=== PATIENT | female | born 1985 | race Caucasian/White ===

== ENCOUNTER 2016-12-19 08:09 | Inpatient (IN) | payer BC ==
[~2016-12-19] VITALS: Ht 165.1 cm; Wt 85.3 kg
[~2016-12-19 08:09] MED LIST: CALCIUM500 MG PO; DHA100 MG; PRENATAL TABLE1 EAC1; SUPER B COMPLE150 MG
[2016-12-30] MEDS ORDERED: ADVIL200 M1 PO (17:03)
[2017-01-07] MEDS ORDERED: MIRENA1 EACH IY (13:41)
--- NOTE | 2017-01-08 09:26 | NUR ---
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
--- NOTE | 2017-01-08 10:37 | NUR ---
PATIENT ADMITTED TO [facility] ROOM 115 VIA A STRETCHER, PATIENT IS ALERT AND ORIENTED UPON ARRIVAL AND ABLE TO MOVE OVER TO THE STRETCHER WITHOUT ANY TROUBLE. PATIENT IS ON RA. NO C/O SOB OR PAIN UPON ARRIVAL. SPINAL HAS RESOLVED AND SHE HAS FEELING IN HER FEET. PULSE OX PLACED ON THE PATIENT AT THIS TIME AND SCD'S PLACED ON HER LEGS AT THIS TIME.
--- NOTE | 2017-01-08 11:36 | NUR ---
PT CALLED THE NURSES STATION TO REPORT THAT AFTER DRINKING SOME CHICKEN BROTH SHE HAD ABOUT 4 OZ. OF EMESIS. SHE REPORTS SHE DOES NOT FEEL NAUSEA AT THIS TIME. SHE SAID SHE FELT A LITTLE COLD. RN AGREE ROOM FEELS COLD. THERMASTAT INCREASED AND WARM BLANKETS GIVEN.
--- NOTE | 2017-01-08 12:07 | NUR ---
2ND SET OF POST OP VITALS TAKEN, TEMP WAS 96.3 BEAR PAW PLACED ON THE PATIENT AT THIS TIME. PATIENT STILL HAS NO C/O PAIN BUT HAS BEEN NAUSEATED. SIPPING ON TEA.
--- NOTE | 2017-01-08 12:39 | NUR ---
POST OP VITALS TAKEN, ALL WITHIN NORMAL LIMITS AT THIS TIME, PATIENT'S TUBES ADJUSTED AT THIS TIME AND SHE HAS HAD ANOTHER EMESIS, SHE REFUSED A DOSE OF ZOFRAN AT THIS TIME.
--- NOTE | 2017-01-08 13:37 | NUR ---
PATIENT HAD ANOTHER EMESIS, ZOFRAN 4MG GIVEN IV AT THIS TIME. LAST SET OF POST OF VITALS TAKEN AND CLEAR LIQUID TRAY TAKEN FROM HER.
--- NOTE | 2017-01-08 14:50 | NUR ---
PATIENT STILL NAUSEATED, 12.5MG OF PHENERGAN GIVEN AT THIS TIME WITH HER SCHEDULED TORADOL. PATIENT HAS NOT BEEN EATING OR DRINKING SO SHE IS VOMITING UP STOMACH BILE. PATIENT HAS NO C/O PAIN AT THIS TIME.
--- NOTE | 2017-01-08 16:18 | NUR ---
PATIENT IS RESTING WITH EYES CLOSED. PATIENT HAS HAD NO EMESIS SINCE PHENERGAN WAS GIVEN IV. PATIENT DENIES PAIN, HAS NO QUESTIONS OR CONCERNS.
--- NOTE | 2017-01-08 17:30 | NUR ---
DOCTOR GE IN TO SEE THE PATIENT AT THIS TIME, DOCTOR UPDATED ON PATIENTS NAUSEA AND CONTINUED EMESIS. PATIENT GIVEN MECLAZINE, SCOPE PATCH, AND REGLAN AT THIS TIME PER REQUEST FROM DR CAROLINA. PATIENT HAS NOT BEEN ABLE TO EVEN KEEP WATER DOWN AT THIS TIME.
--- NOTE | 2017-01-08 17:40 | NUR ---
NURSE IN WITH PATIENT. PATIENT HAS HAD SEVERAL EMISES. GAVE PATIENT A SODA. NO OTHER NEEDS AT THIS TIME.
--- NOTE | 2017-01-08 17:43 | NUR ---
PATIENT HAD ANOTHER EMESIS, MECLAZINE TABLET CAME BACK UP WITH EMESIS. I AND O COMPLETE AND VITALS TAKEN AT THIS TIME.
--- NOTE | 2017-01-08 17:47 | NUR ---
CALLED DUE TO PT HAVING ONLY 100ML OF URINE OUT OF LOPEZ CATHETER. ORDERED TO ADMINISTER 500ML BOLUS AT THIS TIME
--- NOTE | 2017-01-08 18:15 | NUR ---
MED REC COMPLETE
--- NOTE | 2017-01-08 18:37 | NUR ---
PATIENT UP AMBULATING THE HALLWAY AGAIN INDEPENDENTLY.
--- NOTE | 2017-01-08 19:00 | NUR ---
REPORT RECV'D FROM REN ORDOÑEZ. PT AWAKE, WATCHING TV. PER DS, RN PT HAS HAD SEVERAL BOUT OF N/V. CURRENTLY DENIES NAUSEA. SCARLETT PAIN. VAGINAL PACKING IN PLACE, MINIMAL DRAINAGE. PT C/O SOME NUMBNESS IN HER AR AREA. WILL CONTINUE TO MONITOR. NO FURTHER NEEDS AT THIS TIME. MOTHER AT BEDSIDE CALL LIGHT IN PLACE.
--- NOTE | 2017-01-08 22:09 | NUR ---
PT CALLED, IN TO SEE PT. PT STATES SHE VOMITED, "I THINK IT WAS THE SOUP." PT STATES SHE FEELS BETTER AFTER VOMITING. ZOFRAN AND PHENERGAN OFFERED, PT DECLINED. ICE CHIPS GIVEN. ADVISED PT SHE CAN HAVE MEDICATIONS FOR N/V IF NEEDED, ENCOURAGED TO CALL. NO FURTHER NEEDS AT THIS TIME. CALL LIGHT IN REACH.
--- NOTE | 2017-01-09 01:50 | NUR ---
IN TO CHECK ON PT, PT WAKES EASILY TO NOISE. VITALS OBTAINED. BP LOW, WILL RECHECK AND MONITOR. PT DENIES PAIN AND NAUSEA AT THIS TIME. SCHEDULED MEDICATION GIVEN. NO FURTHER NEEDS AT THIS TIME. MOTHER SLEEPING AT BEDSIDE. CALL LIGHT IN REACH.
--- NOTE | 2017-01-09 02:07 | NUR ---
NURSE IS AWARE OF THE PATIENT'S BP.
--- NOTE | 2017-01-09 03:11 | NUR ---
NURSE NOTIFIED RE BP.
--- NOTE | 2017-01-09 03:17 | NUR ---
IN TO CHECK ON PT, VITALS TAKEN. BP 94/42, PULSE 71. PT DENIES DIZZINESS OR LIGHT HEADEDNESS. SMALL AMOUNT OF VAGINAL BLEEDING NOTED ON AR PAD. PT CONFIRMS THAT BP IS NORMALLY LOW. IVF INFUSING. WILL CONTINUE TO MONITOR. NO FURTHER NEEDS AT THIS TIME. CALL LIGHT IN PLACE.
--- NOTE | 2017-01-09 04:48 | NUR ---
PT HAS RESTED WELL THROUGHOUT SHIFT. N/V X1, PT DECLINED PRN MEDICATION FOR NAUSEA. DENIES PAIN. PT ON A REGULAR DIET, HAS HAD SIPS OF H2O DURING SHIFT. ON RA, PULSE OX IN PLACE. LR @ 125 MLS/HR INFUSING INTO 20G IN R HAND. UO HAS INCREASED SINCE DAY SHIFT. LOW BP NOTED THROUGHOUT SHIFT, PT ASYMPTOMATIC. AFIBRILE. SMALL AMOUNT OF VAGINAL BLEEDING NOTED. AAOX3.
--- NOTE | 2017-01-09 07:05 | NUR ---
BEDSIDE HANDOFF REPORT RECEIVED FROM SEPTIC CLEANER RN. PT RESTING IN BED. LOPEZ CATH IN PLACE. IV FLUIDS INFUSING AT 125 ML/HR. PT DENIES NEEDS AT THIS TIME.
--- NOTE | 2017-01-09 08:00 | NUR ---
PT RESTING IN PAIN. PT DENIES PAIN. PT ON ROOM AIR, O2 SATS 96%, LUNG SOUNDS CLEAR. PT WITH LOW URINE OUTPUT, MD AWARE, FLUID BOLUS INFUSING. PT DENIES NAUSEA AT THIS TIME, SCOPALAMINE PACTH IN PLACE. PT ASSISTED TO SIDE OF BED, STOOD, AMBULATED TO BATHROOM, PT DENIES DIZZINESS. PT ASSISTED BACK TO BED. LOPEZ CATH DRAINING YELLOW URINE. SCDS IN PLACE. MOTHER AT BEDSIDE. DISCUSSED PLAN OF CARE. PT DENIES OTHER NEEDS AT THIS TIME.
--- NOTE | 2017-01-09 10:20 | NUR ---
DR. CAROLINA UPDATED ON PT CONDITION. PT WITH INCREASED URINE OUT PUT, 560 ML IN LAST 4 HOURS, IMPROVED COLOR. PT TOLERATING PO, DENIES NAUSEA. TELEPHONE ORDER TO DISCONTINUE LOPEZ CATH AND STOP IV FLUIDS, BEGING VOIDING TRIAL. DISCUSSED WITH PT, PT UNDERSTOOD. LOPEZ CATH REMOVED. PT INSTRUCTED TO CALL FOR ASSISTANCE TO BATHROOM. PT DENIES OTHER NEEDS AT THIS TIME.
--- NOTE | 2017-01-09 10:58 | NUR ---
PATIENT AWAKE IN BED. GOT WARM BLANKET FRESH ICE WATER. AND SET OUT WASH CLOTHES AND TOWELS FOR HER MOM TO HELP HER WASH HERSELF. PATIENT DOING WELL. CALL LIGHT IN REACH.
--- NOTE | 2017-01-09 12:21 | NUR ---
PT WITH URGE TO VOID, UNABLE TO VOID. BLADDER SCAN FOR 282 ML. PT STATES RECTAL DISCOMFORT IS MAKING IT HARD TO RELAX. PT ENCOURAGED TO CONTNINUE TO TRY TO VOID WHEN FEELING TH EURGE TO VOID. PT INSTRCUTED TO AVOID BEARING DOWN. PT UNDERSTAND. PT DENIES OTHER NEEDS AT THIS TIME.
--- NOTE | 2017-01-09 13:12 | NUR ---
PT VOIDED 300 ML WITH ADDITIONAL UNMEASURED AMOUNT THAT MISSED HAT. BLADDER SCAN FOR 349 ML.
--- NOTE | 2017-01-09 13:23 | NUR ---
PT UP WALKING WITH HER MOTHER FOR THE FIRST TIME. PT FEELING GOOD TO GET OUT OF RM AND WALK. MOM VERY GUARDED ABOUT HOW MUCH SHE IS UP-PROTECTING HER. VERY PLEASANT VISIT, WILL OFFER PRAYER SHAWL TO PT, AND CONTINUE TO FOLLOW
--- NOTE | 2017-01-09 14:45 | NUR ---
PT UNABLE TO VOID, BLADDER SCAN FOR 576 ML, PT FEELING PRESSURE AND IS UNCOMFORTABLE. DR. HOPPER CALLED, MESSAGE LEFT FOR DR TO CALL CALL BACK.
--- NOTE | 2017-01-09 15:00 | NUR ---
PT REQUESTING PAIN MEDICATION. 800 MG MOTRIN GIVEN. ICE BACK PROVIDED FOR PERIRECTAL PAIN.
--- NOTE | 2017-01-09 15:30 | NUR ---
DR. HOPPER TO BEDSIDE TO EVALUATE PT. VERBAL ORDER TO STRAIGHT CATH AND RESTART LR AT 125 ML/HR. PT ENCOURAGED TO TRY TO VOID BY 1730. PT DENIES NEEDS AT THIS TIME.
--- NOTE | 2017-01-09 15:41 | NUR ---
PT STRAIGHT CATH FOR 800 ML. PT TOLERATED PROCEDURE WELL.
[2017-01-09] MEDS ORDERED: IBUPROFEN800 MG PO (16:09)
[2017-01-09] MEDS ORDERED: SENNA-S TABLET1 EACH PO (16:10)
[2017-01-09] MEDS ORDERED: NORCO 5-325 TA1 EACH PO (16:10)
[2017-01-09] MEDS ORDERED: KONDREMUL2.5 ML/5 M PO (16:11)
--- NOTE | 2017-01-09 16:22 | NUR ---
PATIENT HAS HAD LOW BLOOD PRESSURE AND HOW IT HAS LEVELED OUT. LET PATIENTS NURSE KNOW.
--- NOTE | 2017-01-09 17:30 | NUR ---
PT WITH URGE TO VOID, ASSISTED TO BATHROOM, UNABLE TO VOID. PT BLADDER SCAN FOR 469. PT ENCOURAGED TO TRY TO VOID AT 1800, WILL BLADDER SCAN AGAIN.
--- NOTE | 2017-01-09 18:26 | NUR ---
INDWELLING LOPEZ CATH INSERTED, PT TOLERATED PROCEDURE WELL. INITIAL 650 ML URINE DRAINED.
--- NOTE | 2017-01-09 18:38 | NUR ---
PT ON ROOM AIR, LUNG SOUNDS CLEAR. PT TOLERATING REGULAR DIET, DENIES NAUSEA. PT WITH URINARY RETENTION, FAILED VOIDING TRIAL, INDWELLING CATH PLACED. IV FLUIDS INFUSING LR AT 125 ML/HR. PT PAIN WELL CONTROLLED WITH PO MOTRIN, HAS NOT REQUIRED NARCOTIC PAIN MEDICATION, ICE PACK TO PERIANAL AREA. PT HAD BEEN AMBULATORY, WALKING IN PEREZ. PLAN TO DC LOPEZ IN AM.
--- NOTE | 2017-01-09 19:10 | NUR ---
REPORT RECV'D FROM JERRELL. IN TO SEE PT. PT AWAKE, WATCHING TV. LOPEZ IN PLACE AFTER FAILED VOIDING TRIALS. IVF INFUSING. MOTHER AT BEDSIDE. NO FURTHER NEEDS AT THIS TIME. CALL LIGHT IN REACH.
--- NOTE | 2017-01-09 19:50 | NUR ---
PER WORD ORDER IV SL. PUMP CLEAR. CARROT CAKE GIVEN TO PT. CALL LIKE IN REACH.
--- NOTE | 2017-01-10 00:37 | NUR ---
IN TO CHECK ON PT, PT APPEARS TO BE SLEEPING. RR EVEN AND UNLABORED. NO APPARENT DISTRESS NOTED. LOPEZ IN PLACE. MOTHER AT BEDSIDE SLEEPING. CALL LIGHT IN REACH.
--- NOTE | 2017-01-10 02:00 | NUR ---
IN TO CHECK ON PT, PT SLEEPING. VITALS TAKEN. PT DENIES PAIN AND NAUSEA AT THIS TIME. NO FURTHER NEEDS AT THIS TIME. MOTHER SLEEPING AT BEDSIDE. CALL LIGHT WITH IN REACH.
--- NOTE | 2017-01-10 05:01 | NUR ---
PT HAS HAD UNEVENTFUL SHIFT, SLEPT WELL. DENIES PAIN AND NAUSEA. SCHEDULED MOTRIN GIVEN. ON REGULAR DIET TOLERATING WELL. SL. LOPEZ IN PLACE, PLAN TO D/C AT 0600 AND BEGIN VOIDING TRIALS. VITALS ARE STABLE, AFIBRILE. 1 PER ASSIST, AMBULATES WELL.
--- NOTE | 2017-01-10 06:15 | NUR ---
IN TO SEE PT, AM MOTRIN GIVEN. JOHN MAYS DC'Adelina, PT TOLERATED WELL. PT STATES SHE FEELS LIKE SHE HAS TO HAVE A BM. ASSISTED UP TO BATHRROM, PT STEADY ON FEET. TOLERATED AMBULATION WELL. FRESH WATER GIVEN. CALL LIGHT IN REACH.
--- NOTE | 2017-01-10 07:26 | NUR ---
RECIEVED BEDSIDE REPORT FROM SMITA MEJIA AND SMITA MORALES. PT UP INDEPENDENTLY IN ROOM, HAS SHOWERED THIS AM. JOHN REMOVED THIS AM, PT AWARE OF VOIDING TRIAL.
--- NOTE | 2017-01-10 08:27 | NUR ---
PATIENT STATED SHE HAD WENT TO THE BATHROOM. HELPED JEFFERSON DELEON WITH A BLADDER SCAN. SET UP PATIENT FOR A SHOWER AND AM CARE.
--- NOTE | 2017-01-10 10:27 | NUR ---
PT HAS VOIDED MULTIPLE TIMES WITH POST VOID RESDIUALS 50-130ML. PT HAS HAD BM.
--- NOTE | 2017-01-10 11:30 | NUR ---
PT RESTING IN BED, PLANNING TO BE DC'D LATER TODAY. HER DAD HAD JUST LEFT, AND MOM IS STILL HERE. 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 EXTENDED A BLESSING THEY BOTH THANKED ME FOR PRAYER SHANAWL WE GAVE TO THEM
--- NOTE | 2017-01-10 12:21 | NUR ---
PATIENT VOIDED 200 MLS AND HAD A RESIUAL OF 160 MLS. PATIENT DOING WELL SITTING UP TO THE SIDE OF THE BED EATING LUNCH.
--- NOTE | 2017-01-10 12:37 | NUR ---
RECIEVED VERBAL TELEPHONE ORDER FROM DR. CAROLINA TO DISCHARGE PT HOME. DR CAROLINA ADVISED SHE GAVE PT INSTRUCTIONS LAST NIGHT, AND WROTE MEDICATIONS YESTERDAY. PT HAS A FOLLOW-UP SCHEDULED FOR 2 WEEKS.
--- NOTE | 2017-01-10 12:38 | NUR ---
PATIENT HAS BEEN WALKING WITH MOM AROUND MED SURG. THIS MORNING. TOOK A SHOWER THIS MORNING.
--- NOTE | 2017-01-26 20:54 | OR ---
[facility] [address] [place], [place] [address] Signed DATE OF PROCEDURE: 01/08/17 SURGEON: Nat Valdez M.D. BRANCH ACCOUNT MANAGER: Fahad Randolph DO. PREOPERATIVE DIAGNOSES: Cystocele, rectocele, stress incontinence. POSTOPERATIVE DIAGNOSES: Cystocele, rectocele, stress incontinence. PROCEDURE Cystocele repair, Sling procedure, cystoscopy, rectocele repair with dermis reinforcement. ANESTHESIA: Spinal with IV sedation. ESTIMATED BLOOD LOSS: 250 mL. DRAINS: Ppo catheter. PACKS: Vaginal. INDICATIONS AND FINDINGS The patient is a 31-year-old female, 2, para 2, currently using the Mirena for control who has been having increasing issues with her vaginal prolapse and stress incontinence and now desires surgical correction. At the time of surgery, she had a grade 2 cystocele and a grade 2 rectocele. The anterior wall, however, was quite short. She had mild uterine prolapse. PROCEDURE The patient was prepped and draped in the dorsal lithotomy position. A weighted speculum was placed and the anterior vaginal wall, was incised in the midline with the knife. The vaginal mucosa was from the underlying tissue with a combination of blunt and sharp dissection. This was carried out from just above the cervix to about a cm and a half below the urethral orifice. This dissection was carried out laterally behind the pubic rami on each side. Following this, an effort was made to reapproximate the perivesical fascial type tissue. This was done with interrupted sutures of 0 Vicryl. The tissue with a fairly poor quality. There were some bleeding points, which were controlled with superficial sutures of 3-0 chromic as well. Evicel was also placed given some ongoing oozing. Following this, the sling was placed. The obturator notch was identified on each side and an incision made. Trocars were placed through the lowest, most medial portion of the obturator notch and brought out immediately behind the pubic Electronically Signed By: NAT VALDEZ MD 01/26/17 0284 PATIENT NAME: AME ADAMS OPERATIVE REPORT DATE OF : 89 PHYSICIAN: NAT VALDEZ MD REPORT #: [id number] REPORT IS CONFIDENTIAL AND NOT TO BE RELEASED WITHOUT AUTHORIZATION [facility] [address] [place] [phone] Signed bone and into the apex of the vaginal incision on each side. The cystoscopy was done after placement of the trocars. The Pop catheter was removed and the cystoscope was used. The 70-degree scope was placed and the patient had received fluorescein. There was no evidence of injury to the bladder from the trocars. Clear fluorescein stained urine was seen to freely egress from both of the ureteral orifices as well. Following this, the sling was attached to the trocars and the sling was brought through the obturator incisions on each side. Care was taken to keep the sling in the mid urethral area and to keep the tension fairly loose. The tab was removed from the covering and the covering was removed from the sling. Following this, the excess was trimmed at the skin. The vaginal mucosa was then trimmed quite a bit as there was significant redundancy and the vaginal mucosa was closed with a running suture of 2-0 Vicryl. Following this, the skin incisions were closed with interrupted sutures of 3-0 Vicryl rapide. Attention was then directed to the posterior repair. A triangle of tissue was removed from the perineal body. The vaginal mucosa was then undermined and incised in the midline. This was carried out to t h e apex of the vagina. The vaginal mucosa was then from the underlying tissue with a combination of blunt and sharp dissection. This was carried out to the sacrospinous ligaments on each side as well. Following this, the Pieholeio device was used to deploy a 0 Vicryl suture into the sacrospinous ligament. These were placed medial and slightly caudal to the spine for use later. Following this, the perirectal fascial type tissue was reapproximated with interrupted sutures of 0 Vicryl. The fascia was of poor quality. Following reduction of the defect, a rectal examination was done which confirmed good reduction of the defect and no sutures compromising the rectal lumen. The dermis which had been repaired according to the package directions and trimmed into a T-shirt type shape was then sutured at the arms to the sacrospinous ligaments on each side and tied down with appropriate tension. Following this, the graft itself was tacked into place with interrupted sutures of 2-0 Vicryl. This was done across the top of the graft, at the arm holes, and down the sides. Following this, another rectal examination was done which confirmed good reduction of the defect and no sutures compromising the rectal lumen. FloSeal was injected around the sacrospinous ligaments on each side to aid in hemostasis. The remaining Evicel was also used. The vaginal mucosa was then trimmed significant amount as there was quite a bit of redundancy. The vaginal mucosa was then closed in a running suture from the apex of the vagina to the hymenal ring. Additional sutures were required near the apex for control of bleeding. Following this, the perineal body was rebuilt with interrupted sutures of 2-0 Vicryl. The posterior fourchette was recreated with a running suture of 2-0 Vicryl. The skin of the perineum was closed with subcuticular sutures of 2-0 Vicryl. Inspection of the vault showed good length and caliber. There was no evidence of ongoing bleeding. The vaginal canal was then packed with sulfa coated gauze. All sponge and needle counts were correct. She tolerated the procedure well was taken to the recovery room in good condition. Electronically Signed By: NAT VALDEZ MD 01/26/17 2054 PATIENT NAME: ADAMSAME OPERATIVE REPORT DATE OF : 89 PHYSICIAN: NAT VALDEZ MD REPORT #: [id number] REPORT IS CONFIDENTIAL AND NOT TO BE RELEASED WITHOUT AUTHORIZATION [address] [address] Signed Nat Valdez MD PJW/Modl /[id number] cc: DO Carlton Mann DO Electronically Signed By: NAT VALDEZ MD 01/26/174 PATIENT NAME: AME ADAMS OPERATIVE REPORT DATE OF : 89 PHYSICIAN: NAT VALDEZ MD REPORT #: [id number] REPORT IS CONFIDENTIAL AND NOT TO BE RELEASED WITHOUT AUTHORIZATION
== END 2017-01-10 13:26 | disposition home or self-care (01) | DRG 748 ==
LOC: DSVR 01-08 05:52 → MS 01-08 05:52
PROVIDERS: ADMIT Obstetrics & Gynecology
PROC: 0JUC0JZ Supplement of Pelvic Region Subcutaneous Tissue and Fascia with Synthetic Substitute, Open Approach (ICD-10-PCS; principal; 2017-01-08 06:45)
PROC: 0JQC0ZZ Repair Pelvic Region Subcutaneous Tissue and Fascia, Open Approach (ICD-10-PCS; 2017-01-08 06:45)
DX: N81.4 Uterovaginal prolapse, unspecified (principal); N39.3 Stress incontinence (female) (male); R42 Dizziness and giddiness; R33.9 Retention of urine, unspecified
CPT/HCPCS: 00910; 36415; 51700; 85027; C1762; C1771; C2631; J0690; J1644; J1885; J2250; J2274; J2405; J2550; J2704; J2765; J3010; J7040; J7120

== ENCOUNTER 2019-09-17 06:35 | Day surgery (SDC) | payer OTHER, BC ==
[~2019-09-17] VITALS: Ht 165.1 cm; Wt 77.1 kg
[~2019-09-17 06:35] MED LIST changes: +ADVIL200 M1 PO; +IBUPROFEN800 MG PO; +KONDREMUL2.5 ML/5 M PO; +MIRENA1 EACH IY; +NORCO 5-325 TA1 EACH PO; +SENNA-S TABLET1 EACH PO
--- NOTE | 2019-09-17 08:22 | NUR ---
09/17/19 0821 Fifi Salinas 0874 PT ARRIVED TO PACU ON RA AND RESP EVEN AND UNLABORED. VSS. PLAN OF CARE DISCUSSED AND PT ABLE TO PASS GAS/AIR. PT TALKING TO RN.
--- NOTE | 2019-09-17 16:08 | OR ---
[facility] [address] [place], [place] [address] Signed DATE OF OPERATION: 09/17/2019 SURGEON: Avelino Bryant MD PREOPERATIVE DIAGNOSES: Persistent left upper and left mid abdominal pain, consideration for diverticular disease. POSTOPERATIVE DIAGNOSIS: No evidence of diverticulosis; large pedunculated hypervascular polyp at 20 cm (excised). PROCEDURE: Total colonoscopy to cecum with hot snare polypectomy x1 with application of hemoclips. ANESTHESIA: Intravenous sedation, fentanyl 100 mcg, Versed 5 mg. INDICATIONS: A 34-year-old white woman is a patient of Dr. Jhoana Naidu in [place] and she has had complaints of left upper abdominal pain. She is known to have reflux symptoms and takes Prilosec (when she remembers to). Consideration has been made, this may represent a diverticular problem or other colonic problem and on that basis, colonoscopy has been recommended. The risks of bleeding, infection, and perforation related to colonoscopy was reviewed with her, she understands and wished to proceed. FINDINGS: Prep was quite excellent. Complete colonoscopy was undertaken to the cecum and into the ileum as well. The only finding of note was a long cylindrical hypervascular polyp at 20 cm. This was excised with hot snare polypectomy technique with application of hemoclips. DESCRIPTION OF PROCEDURE: The patient was brought to the endoscopy suite and placed in lateral decubitus position, given intravenous sedation to the point of slurred speech and nystagmus. Digital rectal examination was normal. An Olympus video colonoscope was passed in the rectum and manipulated throughout the colon noting a hypervascular cylindrical pedunculated polyp at 20 cm. The scope was passed beyond this ultimately to the cecum and intubation of the ileum was ultimately accomplished as well. There was no sign of abnormality in the ileum. The scope was Electronically Signed By: AVELINO BRYANT MD 09/17/19 1608 PATIENT NAME: AME ADAMS OPERATIVE REPORT DATE OF : 89 REPORT #: [id number] PHYSICIAN: AVELINO BRYANT MD PCP: JHOANA NAIDU DO REPORT IS CONFIDENTIAL AND NOT TO BE RELEASED WITHOUT AUTHORIZATION [facility] [address] [place], [place] [address] Signed withdrawn and examination of the colon throughout showed no sign of abnormality until the polyp once again noted at 20 cm. This was excised with hot snare polypectomy technique without problem and specimen passed for pathology. Reinspection of the stalk of the polyp showed some oozing on that basis, two hemoclips were applied. This allowed for complete hemostasis. The scope was withdrawn further and retroflexed view was undertaken, which was normal. Scope was removed and the patient was taken to the recovery room in good condition. CONCLUDING DIAGNOSIS: No lesion in the colon to account for left-sided abdominal pain and certainly no evidence of diverticulosis. The polyp excised was hypervascular, though she has not had bleeding problems. I would recommend a repeat colonoscopy in 3 years sooner if symptoms should occur. As regard to her left upper abdominal pain, we will prescribe empirically Carafate 1 g p.o. q.i.d. on empty stomach and return to see her back in 4-6 weeks or so. Avelino Bryant MD /MODL /[id number] cc: Jhoana Naidu DO Copies: JHOANA NAIDU DO ~ Electronically Signed By: AVELINO BRYANT MD 09/17/19 1608 PATIENT NAME: AME ADAMS OPERATIVE REPORT DATE OF : 89 REPORT #: [id number] PHYSICIAN: AVELINO BRYANT MD PCP: JHOANA NAIDU DO REPORT IS CONFIDENTIAL AND NOT TO BE RELEASED WITHOUT AUTHORIZATION
--- NOTE | 2019-09-21 11:11 | PATH ---
[facility] [address] [place], [place] [address] Signed SPECIMEN(S): A COLON POLYP AT 20 CM SPECIMEN SOURCE: A. COLON POLYP AT 20 CM CLINICAL HISTORY: Colonoscopy with poss biopsies. Preop: Left sided abdominal pain. Postop: Polyp at 20 cm. MICROSCOPIC DESCRIPTION: Histologic sections of all submitted blocks are examined by light microscopy. These findings, together with the gross examination, support the pathologic diagnosis. FINAL PATHOLOGIC DIAGNOSIS: Colon, polyp at 20 cm, polypectomy: - Tubulovillous adenoma. - Negative for high-grade dysplasia or malignancy. NAL:cml:C2NR GROSS DESCRIPTION: The specimen, labeled "KB, #1," and designated on the requisition "colon polyp at 20 cm," is received in formalin and consists of one centeno-brown soft tissue polyp that measures 0.6 x 0.6 x 1.6 cm. The specimen is inked black, bisected, and entirely submitted in cassette (A1). AT (under the direct supervision of a pathologist) The Gross Description was prepared using a voice recognition system. The report was reviewed for accuracy; however, sound-alike word errors, addition and/or deletions may occur. If there is any question about this report, please contact Client Services. PERFORMING LABORATORY: The technical component was performed by [facility], [address] [place] [id number] ([employer]older [employer] Caster: Mckenzie Love MD; CLIA# [id number]). [facility], [address] [address] (CLIA# [id number]). Diagnostician: Isabelle Owens MD Pathologist Electronically Signed 09/21/2019 PATIENT NAME: AME ADAMS PATHOLOGY DATE OF : 89 REPORT #: [id number] PHYSICIAN: [facility] PCP: JHOANA NAIDU DO REPORT IS CONFIDENTIAL AND NOT TO BE RELEASED WITHOUT AUTHORIZATION [address] [address] Signed Copies: ~ PATIENT NAME: AME ADAMS PATHOLOGY DATE OF : 89 REPORT #: [id number] PHYSICIAN: [facility] PCP: JHOANA NAIDU DO REPORT IS CONFIDENTIAL AND NOT TO BE RELEASED WITHOUT AUTHORIZATION
== END 2019-09-17 09:03 | disposition home or self-care (01) ==
LOC: OPS 06:35 → DS 06:35 → OPS 06:45
PROVIDERS: Surgery
PROC: 0DBE8ZZ Excision of Large Intestine, Via Natural or Artificial Opening Endoscopic (ICD-10-PCS; principal; 2019-09-17 06:45)
DX: D12.6 Benign neoplasm of colon, unspecified (principal); K21.9 Gastro-esophageal reflux disease without esophagitis; E66.9 Obesity, unspecified; Z68.28 Body mass index [BMI] 28.0-28.9, adult
CPT/HCPCS: 99153; G0500; J2250; J3010

== ENCOUNTER 2023-04-08 12:43 | Day surgery (SDC) | payer OTHER ==
[~2023-04-08] VITALS: Ht 165.1 cm; Wt 81.8 kg
[2023-04-08] MEDS ORDERED: WELLBUTRIN XL150 MG PO (13:22)
[2023-04-08] MEDS ORDERED: OMEPRAZOLE20 MG PO (13:22)
[2023-04-08 13:23] VITALS: BP 134/85
--- NOTE | 2023-04-08 14:53 | NUR ---
04/08/23 6950 Harini Vo 1448- PT ARRIVES TO PACU UNIT FROM OR VIA STRETCHER. PT IS DROWSY, BUT AWAKE ON AND OFF. PT REPORTS NO PAIN AT THIS TIME, "JUST GASSY". PT ON 2L OF O2 VIA NC, O2 >90% VIA PULSE OX AT THIS TIME. RESPIRATIONS EVEN AND UNLABORED, NO SIGNS OF DISTRESS.
[2023-04-08 15:17] VITALS: BP 111/77
--- NOTE | 2023-04-10 22:22 | OR ---
[facility] [address] [place], [place] [address] Signed DATE OF OPERATION: 04/08/2023 SURGEON: Avelino Bryant MD PREOPERATIVE DIAGNOSES: 1. History of hypervascular long cylindrical polyp at 20 cm (2019). 2. Persistent recurrent epigastric pain; negative ultrasound. POSTOPERATIVE DIAGNOSES: 1. Normal colon to cecum. 2. Proximal gastritis with hiatal hernia. No evidence of obvious esophagitis. No evidence of H pylori. PROCEDURE: Total colonoscopy to cecum and upper endoscopy with biopsy. ANESTHESIA: Intravenous sedation; fentanyl 150 mcg, Versed 6 mg total. INDICATION: This 37-year-old white woman [facility] and underwent colonoscopy by [facility] in June 2019 with issues related to rectal bleeding. She is found to have a hypervascular polyp at 20 cm on a long stalk. Complete excision was undertaken. 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 She has had some rectal bleeding in the past, she has no bleeding currently. Additionally, she has had an episode of rather severe right upper abdominal pain and epigastric pain. She was evaluated on December 04 with a gallbladder ultrasound, which showed no sign of stones. She has no family history of biliary disease. She is currently taking omeprazole and Wellbutrin. She is here to undergo upper endoscopy to assess her symptoms and colonoscopy and surveillance for the hypervascular tubulovillous adenoma she had previously. She understands the risk of both procedures including, but not limited to bleeding, infection, and perforation and wished to proceed. FINDINGS: Upper endoscopy showed proximal gastritis without actual ulceration. There was a moderate size hiatal hernia. Duodenum is normal. CLOtest was negative 30 minutes post procedure. Electronically Signed By: AVELINO BRYANT MD 04/10/23 0589 PATIENT NAME: AME ADAMS OPERATIVE REPORT DATE OF : 89 REPORT #: [id number] PHYSICIAN: AVELINO BRYANT MD PCP: ESTHER AHUMADA REPORT IS CONFIDENTIAL AND NOT TO BE RELEASED WITHOUT AUTHORIZATION [facility] [address] [place], [place] [address] Signed On colonoscopy, the prep was excellent. Complete colonoscopy was undertaken to the cecum. There were no abnormalities and specifically no sign of recurrent or persistent polyp at 20 cm. DESCRIPTION OF PROCEDURE: The patient was brought to the endoscopy suite and placed in the lateral decubitus position, given topical lidocaine hypopharyngeal anesthesia. She was given intravenous sedation to the point of slurred speech and nystagmus with full cardiopulmonary monitoring. A bite block was placed. An Olympus video upper endoscope was passed in the hypopharynx. Vocal cords appeared normal. Scope was advanced to the esophagus, throughout its length it was normal. Scope was passed to the stomach which was insufflated with air. Rugal folds were normal. There was proximal gastritis immediately noted. There was no sign of actual ulceration. The antrum was reasonably normal in appearance. The pylorus was normal and scope was passed through into the duodenum. Biopsies of the duodenum were obtained to assess for celiac disease. The scope was withdrawn and biopsies taken of the antrum for both SIGRID and pathologic testing as well as more proximal stomach biopsy. Retroflexed view confirmed a moderate-sized hiatal hernia. Scope was straightened, withdrawn and careful inspection of the esophageal mucosa did not show inflammation or stricture per se and certainly no sign of Wang's epithelium. Biopsies were obtained nevertheless. The scope was withdrawn and mid esophageal biopsy was then performed. Additional sedation was given and plans were made for colonoscopy. Digital rectal examination was normal. An Olympus video colonoscope was passed in the rectum and manipulated throughout the colon ultimately intubating the cecum itself. The ileocecal valve and appendiceal orifice were normal. Scope was withdrawn from that point and examination throughout showed no sign of abnormality including all of the remaining colon and rectum. Retroflexed view was normal without signs of obvious hemorrhoidal change at this time. Scope was straightened, withdrawn and removed. The patient was taken to the recovery room in good condition. CONCLUDING DIAGNOSIS: No evidence of recurrent polyp. PLAN: 1. Recommend repeat colonoscopy in seven years, sooner if clinically indicated. 2. Upper abdominal pain symptoms, may not be related to proximal gastritis. She is already on a PPI medication. We will additionally add Carafate 1 g p.o. q.i.d. on an Electronically Signed By: AVELINO BRYANT MD 04/10/232221 PATIENT NAME: AME ADAMS OPERATIVE REPORT DATE OF : [birth year] REPORT #: [id number] PHYSICIAN: AVELINO BRYANT MD PCP: ESTHER AHUMADA REPORT IS CONFIDENTIAL AND NOT TO BE RELEASED WITHOUT AUTHORIZATION [facility] [address] [place] [id number] Signed empty stomach and obtain a CCK-HIDA test; it is my belief that she probably has biliary disease rather than manifestations of her mild proximal gastritis. She will see us back in the office after that. MD YVONNE Osei/AMI /[id number] cc: CAR Eisenberg Copies: ESTHER AHUMADA ~ Electronically Signed By: AVELINO BRYANT MD 04/10/232221 PATIENT NAME: AME ADAMS ROSEANN OPERATIVE REPORT DATE OF : [birth year] REPORT #: [id number] PHYSICIAN: AVELINO BRYANT MD PCP: ESTHER AHUMADA REPORT IS CONFIDENTIAL AND NOT TO BE RELEASED WITHOUT AUTHORIZATION
--- NOTE | 2023-04-11 12:54 | PATH ---
[facility] [address] [facility] [place], [place] [address] Signed SPECIMEN(S): A DUODENAL BIOPSY SPECIMEN(S): B PROXIMAL STOMACH BIOPSY SPECIMEN(S): C ANTRUM/PYLORUS BIOPSY SPECIMEN(S): D LOWER ESOPHAGEAL BIOPSY SPECIMEN(S): E MIDDLE ESOPHAGEAL BIOPSY SPECIMEN SOURCE: A. DUODENAL BIOPSY B. PROXIMAL STOMACH BIOPSY C. ANTRUM/PYLORUS BIOPSY D. LOWER ESOPHAGEAL BIOPSY E. MIDDLE ESOPHAGEAL BIOPSY CLINICAL HISTORY: History of polyp; rectal bleeding; right upper quadrant pain FINAL PATHOLOGIC DIAGNOSIS: A. Duodenum, biopsies: - Benign duodenal mucosa, negative for significantly increased intraepithelial lymphocytosis and villous blunting. B. Proximal stomach, biopsies: - Benign oxyntic type gastric mucosa. - Negative for intestinal metaplasia. - Negative for Helicobacter pylori organisms on routine stain. C. Antrum/pylorus, biopsies: - Benign oxyntic type gastric mucosa with reactive gastropathy. - Negative for intestinal metaplasia. - Negative for Helicobacter pylori organisms on routine stain. D. Lower esophagus, biopsies: - Fragments of benign squamous epithelium. - Negative for acute inflammation and significantly increased eosinophils. E. Middle esophagus, biopsies: - Fragments of benign squamous epithelium. - Negative for acute inflammation and significantly increased eosinophils. DDF MICROSCOPIC EXAMINATION: Histologic sections of all submitted blocks are examined by light microscopy. These findings, together with the gross examination, support the pathologic diagnosis. PATIENT NAME: BRYANAME PATHOLOGY DATE OF : [birth year] REPORT #: [id number] PHYSICIAN: LASHAY PATHOLOGY PCP: ESTHER AHUMADA REPORT IS CONFIDENTIAL AND NOT TO BE RELEASED WITHOUT AUTHORIZATION [facility] [address] [place], [place] [address] Signed GROSS DESCRIPTION: A. The specimen, labeled and designated "Curtis, K, " and designated on the requisition "duodenum (NOS) biopsy," is received in formalin and consists of two centeno soft tissue fragments measuring 0.4 to 0.6 cm in length and up to 0.4 cm in greatest diameter, both specimens are submitted entirely in (A1). B. The specimen, labeled and designated "Curtis, K, " and designated on the requisition "stomach (NOS) proximal biopsy," is received in formalin and consists of one centeno soft tissue fragment measuring 0.6 x 0.3 x 0.2 cm, the specimen is submitted entirely in (B1). C. The specimen, labeled and designated "Curtis, K, " and designated on the requisition "stomach, antrum/pylorus biopsy," is received in formalin and consists of two centeno soft tissue fragments measuring 0.4 to 0.6 cm in length and up to 0.2 cm in greatest diameter, all specimens are submitted entirely in (C1). D. The specimen, labeled and designated "Curtis, K, " and designated on the requisition "lower esophagus biopsy," is received in formalin and consists of two centeno-white soft tissue fragments measuring 0.4 to 0.5 cm in length and up to 0.4 cm in greatest diameter, both specimens are submitted entirely in (D1). E. The specimen, labeled and designated "Curtis, K, " and designated on the requisition "middle esophagus biopsy," is received in formalin and consists of two centeno soft tissue fragments measuring 0.3 to 0.4 cm in length and up to 0.3 cm in greatest diameter, both specimens are submitted entirely in (E1). MMA (under the direct supervision of a pathologist) The Gross Description was prepared using a voice recognition system. The report was reviewed for accuracy; however, sound-alike word errors, addition and/or deletions may occur. If there is any question about this report, please contact Client Services. ADDITIONAL NOTES: Immunohistochemical and/or in situ hybridization studies if performed in this case included appropriate positive controls that reacted as expected. This test was developed and its performance characteristics determined by [facility]. It has not been cleared or approved by the U.S. Food and Drug Administration. The FDA has determined that such clearance or approval is not necessary. This test is used for clinical purposes. It should not be regarded as investigational or for research. [facility] is certified under the Clinical Laboratory Improvement PATIENT NAME: AME CURTIS PATHOLOGY DATE OF : [birth year] REPORT #: [id number] PHYSICIAN: LASHAY BARTLETT PCP: ESTHER AHUMADA REPORT IS CONFIDENTIAL AND NOT TO BE RELEASED WITHOUT AUTHORIZATION [facility] [address] [place], [place] [address] Signed Amendments of 1988 (CLIA) as qualified to perform high complexity clinical laboratory testing. PERFORMING LABORATORY: Technical component was performed by [facility], [address] [place] [id number] (CLIA# [id number]). Professional interpretation was performed by [facility], [address] [place] [id number] (CLIA#: [id number]). Diagnostician: Mj Granados DO Pathologist Electronically Signed 04/11/2023 Copies: ~ PATIENT NAME: AME CURTIS ROSEANN PATHOLOGY DATE OF : [birth year] REPORT #: [id number] PHYSICIAN: LASHAY BARTLETT PCP: ESTHER AHUMADA REPORT IS CONFIDENTIAL AND NOT TO BE RELEASED WITHOUT AUTHORIZATION
== END 2023-04-08 15:30 | disposition home or self-care (01) ==
LOC: OPS 12:43 → DS 13:12 → OPS 14:00
PROVIDERS: ATTEND Surgery
PROC: 0DJD8ZZ Inspection of Lower Intestinal Tract, Via Natural or Artificial Opening Endoscopic (ICD-10-PCS; 2023-04-08)
PROC: 0DB98ZX Excision of Duodenum, Via Natural or Artificial Opening Endoscopic, Diagnostic (ICD-10-PCS; principal; 2023-04-08 14:00)
PROC: 0DB78ZX Excision of Stomach, Pylorus, Via Natural or Artificial Opening Endoscopic, Diagnostic (ICD-10-PCS; 2023-04-08 14:00)
DX: Z12.11 Encounter for screening for malignant neoplasm of colon (principal); Z86.010 Personal history of colon polyps; K29.70 Gastritis, unspecified, without bleeding; K44.9 Diaphragmatic hernia without obstruction or gangrene; Z79.899 Other long term (current) drug therapy
CPT/HCPCS: 36415; 84703; 99153; G0500; J2250; J3010; J7121